=== PATIENT | male | born 1995 | race Two or more races ===

== ENCOUNTER 2024-10-29 10:02 | Emergency (ER) | payer SELFPAY ==
[2024-10-29] MEDS: Ketorolac 30 MG/ML SDV IM ONE (10:58)
== END 2024-10-29 12:01 | disposition home or self-care (01) ==
LOC: MW.ED 10:02
DX: M54.50 Low back pain, unspecified (principal); I10 Essential (primary) hypertension; E11.9 Type 2 diabetes mellitus without complications; Z79.899 Other long term (current) drug therapy; Z75.3 Unavailability and inaccessibility of health-care facilities
CPT/HCPCS: 72100; 96372; 99283; J1885